=== PATIENT | female | born 1980 | race Caucasian/White ===

== ENCOUNTER 2025-03-06 21:36 | Emergency (ER) | payer SELFPAY ==
[2025-03-06 21:45] VITALS: BP 139/88; PULSE 75; RESP 20; TEMP 36.4; O2SAT 100
--- NOTE | 2025-03-06 21:57 | XR_ITS ---
Examination: CT lumbar spine, without contrast. 2-D sagittal reconstructions. 2-D coronal reconstructions. 3-D reconstructions. Date and time of exam:March 06, 2000 2513 hours INDICATIONS: Onset of back pain radiating down the legs beginning 2 days ago CTDI: vol (mGy):15.1 DLP: (mGycm):448 Technique: Multiple 1.25 mm axial sections of the lumbar spine without intravenous contrast have been obtained. 2-D sagittal and coronal reconstructions have been obtained. 3-D reconstructions have been obtained. Low dose protocols were performed. One or more of the following dose reduction techniques were used; automated exposure control, adjustment of the mA and/or KV according to patient size, use of iterative reconstruction technique. Findings: There are fracture No significant lumbar disc narrowing No spondylolisthesis L5-S1 4 mm central lumbar disc bulge contiguous with the S1 nerve roots L4-L5 3 mm central lumbar disc bulge L3-L4 7 mm central lumbar disc bulge indenting the ventral margin thecal sac L2-L3 no disc protrusion L1-L2 no disc protrusion IMPRESSION: L5-S1 4 mm central lumbar disc bulge contiguous with the S1 nerve roots L4-L5 3 mm central lumbar disc bulge L3-L4 7 mm on former disc bulge indenting the ventral margin thecal sac
--- NOTE | 2025-03-06 21:58 | PD.EDADULT ---
ED General RME/HPI General Chief complaint: Back Pain/Injury Stated complaint: BACK PAIN Time Seen by Provider: 03/06/25 21:56 Arrival date/time: 03/06/25 21:36 CC: Low back pain HPI patient states the low back pain onset after wearing heels, 2 and half days ago since then the patient has progressive increase in severity, now with pain radiating down both legs when she attempts to walk. Patient denies bowel or bladder symptoms saddle anesthesia numbness tingling or weakness in the lower extremities. Patient denies fall repetitive motion. 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 Patient said ibuprofen Tylenol have not helped. EMS reports stable vital signs and route. The patient was able to stand and pivot. Related Data Home Medications ?Medication ?Instructions ?Recorded ?Confirmed bupropion HCl 300 mg 24 hr tablet, 300 mg PO BID 01/02/20 01/02/20 extended release gabapentin 100 mg capsule 200 mg PO BID 01/02/20 01/02/20 trazodone 150 mg tablet 150 mg PO HS 01/02/20 01/02/20 Previous Rx's ?Medication ?Instructions ?Recorded acetaminophen 300 mg-codeine 30 mg 2 tab PO Q8H PRN pain #20 tabs 03/07/25 tablet cyclobenzaprine 5 mg tablet 5 mg PO TID PRN muscle spasm #15 03/07/25 tabs ibuprofen 600 mg tablet 600 mg PO TID PRN fever or pain 03/07/25 #30 tabs lidocaine 5 % topical patch 2 patch topical QDAY PRN pain #30 03/07/25 (Lidoderm) ea Allergies Allergy/AdvReac Type Severity Reaction Status Date / Time aspirin Allergy Unknown Verified 01/20/23 11:46 Review of Systems Review of Systems Narrative Review of Systems: GEN: No fever, no chills, no weight loss EYES: No discharge, no visual changes, no pain HEENT: No ear pain, no congestion, no sore throat PULM: No shortness of breath, no cough, no congestion CV: No chest pain, no dyspnea on exertion, no palpitations GI: No nausea, no vomiting, no diarrhea, no pain, no constipation : No frequency, no urgency, no dysuria MUSC/SKEL: No joint pain, + back pain SKIN: No rash PSYCH: No hallucinations, no depression HEME/LYMPH: No easy bleeding or bruising tendencies NEURO: No weakness, no headache Past Medical History Past Medical History CARDIAC: Negative Congestive Heart Failure RESPIRATORY: Negative Chronic Obstructive Pulmonary Disease (COPD) GENITOURINARY: Negative Renal Disease ENDOCRINE: Negative Diabetes Mellitus Type 1 or Diabetes Mellitus Type 2 PSYCHO/SOCIAL: Positive Depression and Post Traumatic Stress Disorder Social History SMOKING STATUS: Never smoker ED Exam Narrative Physical exam: [General: In moderate discomfort but not in any acute distress Head normocephalic HEENT: Eyes pupils are PERRLA EOMs are intact mouth pink dry membranes uvula is midline swallow symmetrical phonation is normal. Within acceptable limits Neck is supple nontender Chest equal chest rise nontender to palpation Respiratory: Clear to auscultation no wheezes crackles or rubs CV: Rate rhythm is regular no murmurs rubs or clicks Abdomen is soft nontender no masses positive bowel sounds all 4 quadrants Back: Lumbar paraspinal and spinous process tenderness with palpation. No lumbar paraspinal or lumbar spinous process tenderness with palpation. No pain with palpation to the buttocks and lower back. Skin: Intact no petechiae rash induration ulceration or crepitus Extremities: Moving all extremities against resistance cap refill less than 2 seconds neurosensory intact. Mildly decreased range of motion of lower extremity secondary to back pain. Neuro: Awake alert oriented x3 Glascow coma 15 no focal deficits] Course Quality Measures none Orders Category Date Time Status CT lumbar spine wo con Stat Exams 03/06/25 21:57 Completed Ketorolac Inj [Toradol Inj] Med 03/07/25 00:43 Discontinued 30 mg IVP X1 ONE Lidocaine 5% Patch Med 03/07/25 00:41 Discontinued 2 patch TOP X1 ONE MethylPREDNISolone.* [SoluMEDROL Inj] Med 03/07/25 00:43 Discontinued 125 mg IVP X1 ONE Morphine Inj Med 03/07/25 00:41 Discontinued 10 mg IM X1 ONE oxyCODONE/APAP 5/325 [Percocet 5/325] Med 03/06/25 21:56 Discontinued 1 tab PO X1 ONE Vital Signs Vital signs: Vital Signs Temperature 97.6 F 03/06/25 21:45 Pulse Rate 75 03/06/25 21:45 Respiratory Rate 20 03/06/25 21:45 Blood Pressure 139/88 H 05/12/25 21:45 Pulse Oximetry (%) 100 03/06/25 21:45 Oxygen Delivery Method Room Air 03/06/25 21:45 Discharge Plan Plan Patient Disposition: HOME (Self Care) Prescriptions/Referrals Prescriptions/Med Rec: New acetaminophen-codeine 300-30 mg tablet 2 tab PO Q8H MDD 6 PRN (Reason: pain) Qty: 20 0RF lidocaine [Lidoderm] 5 % adhesive patch,medicated 2 patch topical QDAY PRN (Reason: pain) Qty: 30 0RF Rx Instructions: leave on most painful area for up to 12 hrs ibuprofen 600 mg tablet 600 mg PO TID PRN (Reason: fever or pain) Qty: 30 0RF cyclobenzaprine 5 mg tablet 5 mg PO TID PRN (Reason: muscle spasm) Qty: 15 0RF No Action trazodone 150 mg Tablet 150 mg PO HS gabapentin 100 mg Capsule 200 mg PO BID bupropion HCl 300 mg Tablet Extended Release 24 Hr 300 mg PO BID Referrals: No Primary/Family,Physician [Primary Care Provider] - In 1 week Problem List Clinical Impression: Lumbar spinal stenosis Patient/Caregiver Discharge Instructions Discharge Activity: activity as tolerated Education Materials: ED Sciatica, ED Herniated Intervertebral Disk Additional Instructions: Discharge Instructions from Dr. Montanez: --After evaluation, we are dealing with Sciatica (same as Lumbar Radiculopathy or Spinal Stenosis) where pinched nerve is causing your symptoms (from disc herniations). See attached handouts. --This condition is difficult because normal pain medications don?t work very well on nerve pain. --Despite the pain, try to resume your normal chores and activities.? Because inactivity is terrible for this condition.? And activity won?t make your condition worse.? Use a cane of stick in your left hand to help stand and walk.? --Use Ibuprofen and Cyclobenzaprine and Tylenol with codeine and lidocaine patches as needed.? Don't expect the pain to go away completely, hoping to take the edge off.?? --When resting and sleeping, try left sided position (with your knees to your chest and bending forward).? This can take some pressure off the nerve and help your pain. --Apply ice or heat if helpful. --See a private doctor (outside the ER) on 03/08/2025 for further care. Ask to help you get more care not available here in the ER.? Such as MRI imaging, physical therapy, and referrals to see specialists.? Some choose to have surgery for this condition. But you need to have MRI imaging to confirm the diagnosis and assess the severity to get the best treatments. --Seek immediate medical care with paralysis in your foot, losing control of your bladder or bowels, saddle numbness (anal numbness), or with any concerns.?? Print Language: Ghanaian Stand Alone Forms: Leelee Award Info., Patient Portal Info Letter MDM Medication Administration(s) Medication Administration History Discontinued Medications Ketorolac Tromethamine (Ketorolac Inj 30 Mg/Ml Vial) 30 mg IVP X1 ONE Stop: 03/07/25 00:44 Last Admin: 03/07/25 00:52 Dose: 30 mg Documented By: TRINH Lidocaine (Lidocaine 5% 1 Patch) 2 patch TOP X1 ONE Stop: 03/07/25 00:42 Last Admin: 03/07/25 00:51 Dose: 2 patch Documented By: TRINH Methylprednisolone Sodium Succinate (Methylprednisolone Sod Succ 62.5 Mg/Ml 2ml Vial) 125 mg IVP X1 ONE Stop: 03/07/25 00:44 Last Admin: 03/07/25 00:52 Dose: 125 mg Documented By: TRINH Morphine Sulfate (Morphine Sulf Inj 10 Mg/Ml Vial) 10 mg IM X1 ONE Stop: 03/07/25 00:42 Last Admin: 03/07/25 00:52 Dose: 10 mg Documented By: TRINH Oxycodone/Acetaminophen (Oxycodone/Apap 5/325 Tablet) 1 tab PO X1 ONE Stop: 03/06/25 21:57 Last Admin: 03/06/25 22:24 Dose: 1 tab Documented By: TRINH
[2025-03-06 22:18] VITALS: PULSE 92; RESP 20; O2SAT 97; BMI 21.6
[2025-03-06] MEDS: oxyCODONE/APAP 5/325 TABLET 1 TAB PO (22:24)
--- NOTE | 2025-03-06 23:22 | EDNOTE_ITS ---
Emergency Room Addendum <Juliana Duke - Last Filed: 03/07/25 00:51> Addendum Narrative: I took over the care from previous shift physician at 2300 on 03/06/2025. See previous notes for complete H & P and ED course. I reviewed all diagnostic test results. My review of the CT report is L5-S1 4 mm central lumbar disc bulge contiguous with the S1 nerve roots. L4-L5 3 mm central lumbar disc bulge. L3-L4 7 mm on former disc bulge indenting the ventral margin thecal sac. Diagnoses include: Lumbar spinal stenosis. Treatment here included Lidocaine patch, Morphine, and Hydrocodone. Based on my best medical judgment, made decision no further evaluation or treat ment indicated at this time. Patient understands and agrees to the discharge instructions customized and printed, see below. Discharge Instructions from Dr. Montanez: --After evaluation, we are dealing with Sciatica (same as Lumbar Radiculopathy or Spinal Stenosis) where pinched nerve is causing your symptoms (from disc herniations). See attached handouts. --This condition is difficult because normal pain medications don?t work very well on nerve pain. --Despite the pain, try to resume your normal chores and activities. Because inactivity is terrible for this condition. And activity won?t make your condition worse. Use a cane of stick in your left hand to help stand and walk. --Use Ibuprofen and Cyclobenzaprine and Tylenol with codeine and lidocaine patches as needed. Don't expect the pain to go away completely, hoping to take the edge off. --When resting and sleeping, try left sided position (with your knees to your chest and bending forward). This can take some pressure off the nerve and help your pain. --Apply ice or heat if helpful. --See a private doctor (outside the ER) on 03/08/2025 for further care. Ask to help you get more care not available here in the ER. Such as MRI imaging, physical therapy, and referrals to see specialists. Some choose to have surgery for this condition. But you need to have MRI imaging to confirm the diagnosis and assess the severity to get the best treatments. --Seek immediate medical care with paralysis in your foot, losing control of your bladder or bowels, saddle numbness (anal numbness), or with any concerns. Shaun Montanez MD <Shaun Montanez MD - Last Filed: 03/07/25 00:53> Addendum Narrative: I took over the care from previous shift physician at 2300 on 03/06/2025. See previous notes for complete H & P and ED course. I reviewed all diagnostic test results. My review of the CT report is L5-S1 4 mm central lumbar disc bulge contiguous with the S1 nerve roots. L4-L5 3 mm central lumbar disc bulge. L3-L4 7 mm on former disc bulge indenting the ventral margin thecal sac. Diagnoses include: Lumbar spinal stenosis. Treatment here from me included Lidocaine patch, Morphine, Toradol, and Solu- Medrol. She felt much better. Recommended more outpatient care. Based on my best medical judgment, made decision no further evaluation or treatment indicated at this time. Patient understands and agrees to the discharge instructions customized and printed, see below. Discharge Instructions from Dr. Montanez: --After evaluation, we are dealing with Sciatica (same as Lumbar Radiculopathy or Spinal Stenosis) where pinched nerve is causing your symptoms (from disc herniations). See attached handouts. --This condition is difficult because normal pain medications don?t work very well on nerve pain. --Despite the pain, try to resume your normal chores and activities. Because inactivity is terrible for this condition. And activity won?t make your condition worse. Use a cane of stick in your left hand to help stand and walk. --Use Ibuprofen and Cyclobenzaprine and Tylenol with codeine and lidocaine patch es as needed. Don't expect the pain to go away completely, hoping to take the edge off. --When resting and sleeping, try left sided position (with your knees to your chest and bending forward). This can take some pressure off the nerve and help your pain. --Apply ice or heat if helpful. --See a private doctor (outside the ER) on 03/08/2025 for further care. Ask to help you get more care not available here in the ER. Such as MRI imaging, physical therapy, and referrals to see specialists. Some choose to have surgery for this condition. But you need to have MRI imaging to confirm the diagnosis and assess the severity to get the best treatments. --Seek immediate medical care with paralysis in your foot, losing control of your bladder or bowels, saddle numbness (anal numbness), or with any concerns. Shaun Montanez MD
[2025-03-07] MEDS: LIDOCAINE 5% 1 PATCH 2 PATCH TOP (00:51)
[2025-03-07 00:52] VITALS: BP 118/80; PULSE 72; RESP 19; TEMP 36.8; O2SAT 100
[2025-03-07] MEDS: KETOROLAC INJ 30 MG/ML VIAL IVP (00:52)
[2025-03-07] MEDS: MethylPREDNISolone SOD SUCC 62.5 MG/ML 2ML VIAL 125 MG IVP (00:52)
[2025-03-07] MEDS: MORPHINE SULF INJ 10 MG/ML VIAL IM (00:52)
== END 2025-03-07 01:16 | disposition home or self-care (01) ==
PROVIDERS: Emergency Provider Emergency Medicine
DX: M48.061 Spinal stenosis, lumbar region without neurogenic claudication (principal); M51.360 Other intervertebral disc degeneration, lumbar region with discogenic back pain only; M51.370 Other intervertebral disc degeneration, lumbosacral region with discogenic back pain only
CPT/HCPCS: 72131; 96372; 96374; 96375; 99284; J1885; J2270; J2919; J3490; A9270